=== PATIENT | male | born 1985 | race Caucasian/White ===

== ENCOUNTER 2024-02-20 10:35 | Emergency (ER) | payer OTHER ==
[2024-02-20 11:17] LABS: #Basophils 0.04 10x3/uL (0.0-0.2); #Eosinphils 0.13 10x3/uL (0.0-0.5); #Monocytes 0.45 10x3/uL (0.0-1.1); #Neutrophils 5.96 10x3/uL (1.5-8.4); %Basophils 0.5 % (0.0-2.0); %Eosinophils 1.5 % (0.0-6.0); %Lymphocytes 24.5 % (18.0-47.0); %Monocytes 5.1 % (0.0-10.0); %Neutrophils 68.2 % (40.0-75.0); Hematocrit 45.7 % (38.8-50.0); Hemoglobin 15.2 g/dL (13.5-17.5); Mean Corpuscular HGB CONC 33.3 g/dL (32.0-36.0); Mean Corpuscular Hemoglobin 25.5 pg (27.0-33.0); Mean Corpuscular Volume 76.8 fL (81.2-95.1); Mean Platelet Volume 9.4 fL (7.4-10.4); Platelet Count 320 10x3/uL (150-450); RBC Distribution Width 14.2 % (11.5-14.5); Red Blood Cell (RBC) Count 5.95 10x6/uL (4.32-5.72); White Blood Cell (WBC) Count 8.7 10x3/uL (3.5-10.5)
[2024-02-20] MEDS ORDERED: Aspirin Chewable 81 MG TAB ONE (11:18)
[2024-02-20] MEDS ORDERED: Losartan 25 MG TAB ONE (11:18)
[2024-02-20] MEDS ORDERED: Hydrochlorothiazide 25 MG TAB PO SCH (11:30)
[2024-02-20 11:44] LABS: ALT (SGPT) 20 U/L (8-55); AST (SGOT) 17 U/L (5-34); Alkaline Phosphatase 84 U/L (40-110); Anion Gap 14 mmol/L (10-20); BUN (Urea Nitrogen) 18 mg/dL (8.9-20.6); Bilirubin, Total 0.3 mg/dL (0.2-1.2); Calc. Creatinine Clearance 0 mL/min (70-130); Calcium 9.5 mg/dL (7.8-10.44); Carbon Dioxide 22 mmol/L (22-29); Chloride 108 mmol/L (98-107); Estimated GFR 109; Globulin 3.1 g/dL (2.4-3.5); Glucose 133 mg/dL (70-105); Potassium 3.8 mmol/L (3.5-5.1); Protein, Total 7.1 g/dL (6.0-8.3); Sodium 140 mmol/L (136-145)
[2024-02-20 11:46] LABS: Troponin I Less than 0.010 ng/mL (< 0.028)
== END 2024-02-20 13:04 | disposition home or self-care (01) ==
LOC: CSHERS 10:35
DX: I10 Essential (primary) hypertension (principal); M10.9 Gout, unspecified; Z76.0 Encounter for issue of repeat prescription; Z79.82 Long term (current) use of aspirin
CPT/HCPCS: 71045; 80053; 84484; 85025; 93005